=== PATIENT | male | born 1950 | race Caucasian/White ===

== ENCOUNTER 2016-08-10 13:09 | Emergency (ER) | payer MEDICARE, OTHER ==
[~2016-08-10] VITALS: Ht 180.3 cm; Wt 80.9 kg
[~2016-08-10 13:09] MED LIST: CARB100 PO; LISI-660 PO
[2016-08-10] MEDS ORDERED: LEVE500T53 PO (13:24)
[2016-08-10] MEDS ORDERED: LIDOCAINE HCL/PF 1% 2 ML VIAL IM ONE (14:00)
[2016-08-10] MEDS ORDERED: CefTRIAXone SODIUM 1 GM/VIAL IM ONE (14:00)
[2016-08-10 15:40] VITALS: BP 139/77
== END 2016-08-10 15:40 | disposition home or self-care (01) ==
LOC: EMS 13:10
DX: S30.860A Insect bite (nonvenomous) of lower back and pelvis, initial encounter (principal); L03.312 Cellulitis of back [any part except buttock and flank]; F17.210 Nicotine dependence, cigarettes, uncomplicated; I10 Essential (primary) hypertension; L08.9 Local infection of the skin and subcutaneous tissue, unspecified; W57.XXXA Bitten or stung by nonvenomous insect and other nonvenomous arthropods, initial encounter; Y99.9 Unspecified external cause status; Y92.9 Unspecified place or not applicable; Y93.89 Activity, other specified; L29.9 Pruritus, unspecified
CPT/HCPCS: 96372; 99284; J0696; J3490

== ENCOUNTER 2018-04-07 01:47 | Emergency (ER) | payer MEDICARE, OTHER ==
[~2018-04-07] VITALS: Ht 180.3 cm; Wt 79.5 kg
[~2018-04-07 01:47] MED LIST changes: -CARB100 PO; +LEVE500T53 PO; -LISI-660 PO
[2018-04-07] MEDS ORDERED: IPRA4AER IH (01:55)
[2018-04-07] MEDS ORDERED: IPRATROPIUM BROMIDE 0.5 MG/2.5 ML NEB SOLUTION NEB ONE ×2 (02:00→02:30)
[2018-04-07] MEDS ORDERED: ALBUTEROL SULFATE 2.5 MG/0.5 ML NEB SOLUTION NEB ONE (02:00)
[2018-04-07] MEDS ORDERED: ALBUTEROL SULFATE 5 MG/ML 20 ML NEB SOLN [BULK] NEB ONE (02:30)
[2018-04-07 02:48] LABS: BASOPHILS % (AUTO) 0.8 % (0.0-2.0); EOSINOPHILS % (AUTO) 7.4 % (1.0-6.0); HEMATOCRIT 45.7 % (41-53); HEMOGLOBIN 15.5 g/dL (13.5-17.5); LYMPHOCYTES # (AUTO) 2.4 K/uL (1.0-4.8); LYMPHOCYTES % (AUTO) 30.7 % (22.0-44.0); MEAN CORPUSCULAR HGB CONC 33.8 G/dL (31.0-37.0); MEAN CORPUSCULAR VOLUME 92 fL (80-100); MONOCYTES # (AUTO) 0.7 K/uL (0.1-1.0); MONOCYTES % (AUTO) 8.9 % (2.0-9.0); NEUTROPHILS % (AUTO) 52.2 % (40.0-70.0); PLATELET COUNT (AUTO) 248 K/uL (150-450); RED BLOOD CELL COUNT(AUTO) 4.99 MIL/uL (4.50-5.90); RED CELL DISTRIBUTION WIDTH 13.3 % (11.5-14.5)
[2018-04-07] MEDS ORDERED: 0.9% SODIUM CHLORIDE 5 ML NEB SOLUTION NEB ONE (02:53)
[2018-04-07 03:00] LABS: ANION GAP 9 mmol/L (8-16); CALCIUM, TOTAL 8.5 mg/dL (8.8-10.5); CARBON DIOXIDE 27 mmol/L (22-29); CHLORIDE 105 mmol/L (98-107); CREATININE 1.04 mg/dL (0.60-1.30); GLOMERULAR FILTR. RATE CALC > 60 mL/min (>60); GLUCOSE,RANDOM 102 mg/dL (70-110); POTASSIUM 3.8 mmol/L (3.5-5.1); SODIUM SERUM 141 mmol/L (136-145); UREA NITROGEN, BLOOD 15 mg/dL (7-18)
[2018-04-07 03:05] LABS: ALANINE AMINOTRANSFERASE 29 U/L (12-78); ALBUMIN 3.5 g/dL (3.4-5.0); ALKALINE PHOSPHATASE 47 U/L (46-116); ASPARTATE AMINOTRANSFERASE 19 U/L (15-37); BILIRUBIN,TOTAL 0.8 mg/dL (0.1-1.0); TOTAL PROTEIN, SERUM 6.4 g/dL (6.4-8.2)
[2018-04-07] MEDS ORDERED: MAGNESIUM SULFATE 2 GM/WATER 50 ML IV ONE (03:15)
[2018-04-07] MEDS ORDERED: MethylPREDNISolone SOD SUCC 125 MG/2 ML VIAL IVP ONE (03:15)
[2018-04-07 03:30] LABS: B-TYPE NATRIURETIC PEPTIDE 61 pg/mL (0-100)
[2018-04-07] MEDS ORDERED: AZITHROMYCIN 250 MG TABLET PO ONE (03:30)
[2018-04-07] MEDS ORDERED: CefTRIAXone 1 GM/DEXTROSE 50 ML IV ONE (03:30)
[2018-04-07 04:30] VITALS: BP 132/77
== END 2018-04-07 04:56 | disposition home or self-care (01) ==
LOC: EMS 01:47
DX: J44.1 Chronic obstructive pulmonary disease with (acute) exacerbation (principal); J18.9 Pneumonia, unspecified organism; I10 Essential (primary) hypertension; F17.210 Nicotine dependence, cigarettes, uncomplicated; Z88.2 Allergy status to sulfonamides; Z79.899 Other long term (current) drug therapy
CPT/HCPCS: 36415; 71045; 80053; 83880; 84484; 85025; 85730; 93005; 94640; 96365; 96366; 96368; 96375; 99284; 99406; J0696; J2930; J3475; 94644

== ENCOUNTER 2018-10-16 16:53 | Emergency (ER) | payer MEDICARE ==
[~2018-10-16] VITALS: Ht 177.8 cm; Wt 77.3 kg
[~2018-10-16 16:53] MED LIST changes: +IPRA4AER IH
[2018-10-16 16:56] VITALS: BP 141/93
== END 2018-10-16 17:18 | disposition left against medical advice (07) ==
LOC: EMS 16:56
DX: Z53.21 Procedure and treatment not carried out due to patient leaving prior to being seen by health care provider (principal)

== ENCOUNTER 2023-06-17 11:36 | Inpatient (IN) | payer MEDICARE, OTHER ==
[~2023-06-17] VITALS: Ht 180.3 cm; Wt 94.0 kg
[~2023-06-17 11:36] MED LIST changes: +LEVE500T20 PO; -LEVE500T53 PO
[2023-06-17 11:54] VITALS: PULSE 117; PULSE 97; RESP 19; RESP 20; O2SAT 95; O2SAT 98
[2023-06-17] MEDS: IPRATROPIUM BROMIDE 0.5 MG/2.5 ML NEB SOLUTION NEB ONE (11:54)
[2023-06-17] MEDS: ALBUTEROL SULFATE 2.5 MG/0.5 ML 5 ML NEB SOLUTION NEB ONE (11:54)
[2023-06-17] MEDS ORDERED: IPRATROPIUM BROMIDE 0.5 MG/2.5 ML NEB SOLUTION NEB ONE (12:00)
[2023-06-17] MEDS ORDERED: ALBUTEROL SULFATE 2.5 MG/0.5 ML NEB SOLUTION NEB ONE (12:00)
[2023-06-17 12:16] LABS: BASOPHILS % (AUTO) 0.3 % (0.0-2.0); EOSINOPHILS % (AUTO) 0.2 % (1.0-6.0); HEMATOCRIT 44.6 % (41-53); HEMOGLOBIN 14.7 g/dL (13.5-17.5); LYMPHOCYTES # (AUTO) 1.6 K/uL (1.0-4.8); MEAN CORPUSCULAR HGB CONC 32.9 G/dL (31.0-37.0); MEAN CORPUSCULAR VOLUME 88 fL (80-100); MONOCYTES # (AUTO) 2.1 K/uL (0.1-1.0); MONOCYTES % (AUTO) 9.1 % (2.0-9.0); NEUTROPHILS # (AUTO) 19.4 K/uL (1.8-7.7); NEUTROPHILS % (AUTO) 83.4 % (40.0-70.0); PLATELET COUNT (AUTO) 234 K/uL (150-450); RED BLOOD CELL COUNT(AUTO) 5.07 MIL/uL (4.50-5.90); RED CELL DISTRIBUTION WIDTH 14.3 % (11.5-14.5); WHITE BLOOD COUNT (AUTO) 23.3 K/uL (4.5-11.0)
[2023-06-17] MEDS: MethylPREDNISolone SOD SUCC 125 MG/2 ML VIAL IVP ONE (12:26)
[2023-06-17 12:32] LABS: CALCIUM, TOTAL 9.2 mg/dL (8.8-10.5); CREATININE 1.41 mg/dL (0.60-1.30); INR 1.3 (0.9-1.1); POTASSIUM 4.3 mmol/L (3.5-5.1)
[2023-06-17 12:35] LABS: TROPONIN I-HIGH SENSITIVITY 7 ng/L (<76)
[2023-06-17 12:38] LABS: ALBUMIN 3.3 g/dL (3.4-5.0); BILIRUBIN,TOTAL 2.5 mg/dL (0.1-1.0); TOTAL PROTEIN, SERUM 7.9 g/dL (6.4-8.2)
[2023-06-17 12:58] VITALS: PULSE 117; RESP 18; O2SAT 98
[2023-06-17] MEDS: CefTRIAXone 1 GM/DEXTROSE 50 ML IV ONE (13:25)
[2023-06-17] MEDS ORDERED: MAGNESIUM HYDROXIDE SUSPENSION 30 ML UDCUP PO PRN (14:30)
[2023-06-17] MEDS ORDERED: ONDANSETRON HCL 4 MG/2 ML VIAL IVP PRN (14:30)
[2023-06-17] MEDS: AZITHROMYCIN 500 MG/NS 250 ML IV ONE (18:37)
[2023-06-17] MEDS: HEPARIN SODIUM,PORCINE 5,000 UNITS/ML VIAL SQ SCH (18:37)
[2023-06-17] MEDS: MethylPREDNISolone SOD SUCC 125 MG/2 ML VIAL IVP SCH (19:31)
[2023-06-17] MEDS: DILTIAZEM HCL 5 MG/ML 5 ML VIAL IVP ONE ×2 (19:50→20:09)
[2023-06-17] MEDS: ONDANSETRON HCL 4 MG/2 ML VIAL IVP ONE (20:09)
[2023-06-17] MEDS: SODIUM CHLORIDE 0.9% 500 ML IV ONE (20:09)
[2023-06-17] MEDS: CALCIUM GLUCONATE 100 MG/ML 10 ML IVP ONE (20:09)
[2023-06-17] MEDS: DOCUSATE SODIUM 100 MG CAPSULE PO SCH (20:10)
[2023-06-17 21:45] VITALS: BP 110/75; PULSE 98; RESP 19; TEMP 98.1
[2023-06-18] VITALS (7 sets, daily range): BP systolic 112–117; BP diastolic 69–82; PULSE 100–116; RESP 18; TEMP 97.4–98.2
[2023-06-18 07:46] LABS: BASOPHILS % (AUTO) 0.1 % (0.0-2.0); EOSINOPHILS % (AUTO) 0 % (1.0-6.0); HEMATOCRIT 37.5 % (41-53); HEMOGLOBIN 12.6 g/dL (13.5-17.5); LYMPHOCYTES # (AUTO) 0.5 K/uL (1.0-4.8); LYMPHOCYTES % (AUTO) 2.9 % (22.0-44.0); MEAN CORPUSCULAR HEMOGLOBIN 29.3 pg (26.0-34.0); MEAN CORPUSCULAR HGB CONC 33.5 G/dL (31.0-37.0); MEAN CORPUSCULAR VOLUME 87 fL (80-100); MONOCYTES # (AUTO) 0.7 K/uL (0.1-1.0); MONOCYTES % (AUTO) 4.4 % (2.0-9.0); NEUTROPHILS # (AUTO) 15.9 K/uL (1.8-7.7); PLATELET COUNT (AUTO) 219 K/uL (150-450); RED CELL DISTRIBUTION WIDTH 13.8 % (11.5-14.5); WHITE BLOOD COUNT (AUTO) 17.1 K/uL (4.5-11.0)
[2023-06-18 07:50] LABS: NEUTROPHILS % (AUTO) 92.6 % (40.0-70.0)
[2023-06-18 08:13] LABS: ANION GAP 10 mmol/L (8-16); CALCIUM, TOTAL 9.1 mg/dL (8.8-10.5); CARBON DIOXIDE 26 mmol/L (22-29); CHLORIDE 99 mmol/L (98-107); CREATININE 1.16 mg/dL (0.60-1.30); GLOMERULAR FILTR. RATE CALC > 60 mL/min (>60); GLUCOSE,RANDOM 180 mg/dL (70-110); POTASSIUM 3.8 mmol/L (3.5-5.1); SODIUM SERUM 135 mmol/L (136-145); UREA NITROGEN, BLOOD 25 mg/dL (7-18)
[2023-06-18] MEDS: LevETIRAcetam 500 MG TABLET PO SCH (08:24)
[2023-06-18] MEDS: FAMOTIDINE 20 MG TABLET PO SCH (08:24)
[2023-06-18] MEDS ORDERED: SODIUM CHLORIDE 0.9% 250 ML IV ONE (12:45)
[2023-06-18] MEDS: CefTRIAXone 1 GM/DEXTROSE 50 ML IV SCH (13:24)
[2023-06-18] MEDS: AZITHROMYCIN 500 MG/NS 250 ML IV ONE (14:30)
[2023-06-18] MEDS: DEXTRAN 70 0.1%/HYPROMELL 0.3% 0.9 ML OPHTHALMIC SOLUTION [PF] OU SCH (14:57)
[2023-06-18] MEDS: DILTIAZEM HCL CD 120 MG ER CAPSULE PO SCH (22:20)
[2023-06-18] MEDS: DILTIAZEM HCL 5 MG/ML 5 ML VIAL IVP ONE (22:20)
[2023-06-18] MEDS: BENZONATATE 100 MG CAPSULE PO SCH (23:42)
[2023-06-19] VITALS (9 sets, daily range): BP systolic 118–141; BP diastolic 78–96; PULSE 61–110; RESP 18–20; TEMP 97.2–97.7; O2SAT 94–99
[2023-06-19] MEDS: BUDESONIDE 0.5 MG/2 ML NEB SOLUTION NEB SCH (09:00)
[2023-06-19] MEDS ORDERED: 0.9% SODIUM CHLORIDE 5 ML NEB SOLUTION NEB ONE (15:04)
[2023-06-19 15:23] LABS: SOURCE, BLOOD GAS ARTERIAL; TEMPERATURE, FAHRENHEIT, BG 97.7 FAHREN (96.0-98.6)
[2023-06-19 15:26] LABS: ABG BASE EXCESS -1.8 mmol/L (-2.0-3.0); ABG CARBOXYHEMOGLOBIN 1.7 % (0.0-1.5); ABG HCO3 23.5 mmol/L (22.0-26.0); ABG METHEMOGLOBIN 0.6 % (0.0-1.5); ABG OXYGEN CONTENT 18.2 mL/dL (15.0-23.0); ABG OXYGEN SATURATION 99.8 % (95.0-98.0); ABG OXYHEMOGLOBIN 97.5 % (94.0-100.0); ABG PCO2 34 mmHg (35-45); ABG PH 7.435 (7.35-7.450); ABG TOTAL HEMOGLOBIN 13.1 G/dL (12.0-18.0); PO2, ARTERIAL BG 145.9 mmHg (75.0-83.0)
[2023-06-19 15:39] LABS: ABG A-A DIFF O2 42.7 mmHg (10-20.0); ALLEN TEST, BLOOD GAS Positive; O2 DEVICE,BLOOD GAS CANNULA (ROOM AIR); SITE, BLOOD GAS LFT RADIAL
[2023-06-19] MEDS: ALBUTEROL SULFATE 2.5 MG/0.5 ML NEB SOLUTION NEB PRN (15:47)
[2023-06-20] VITALS (12 sets, daily range): BP systolic 115–144; BP diastolic 73–94; PULSE 71–102; RESP 16–21; TEMP 97.2–98.1; O2SAT 95–99
[2023-06-21] VITALS (8 sets, daily range): BP systolic 121–148; BP diastolic 79–95; PULSE 73–92; RESP 17–20; TEMP 97.2–97.7; O2SAT 94–97
[2023-06-21] MEDS ORDERED: APIX5TAB PO (09:05)
[2023-06-21] MEDS: DIGOXIN 250 MCG/ML 2 ML AMP IVP ONE ×2 (09:40→12:56)
[2023-06-21 09:47] LABS: EOSINOPHILS % (AUTO) 0 % (1.0-6.0); LYMPHOCYTES # (AUTO) 0.6 K/uL (1.0-4.8); LYMPHOCYTES % (AUTO) 4.2 % (22.0-44.0); MEAN CORPUSCULAR HGB CONC 33.2 G/dL (31.0-37.0); MEAN CORPUSCULAR VOLUME 87 fL (80-100); MONOCYTES # (AUTO) 0.6 K/uL (0.1-1.0); MONOCYTES % (AUTO) 3.7 % (2.0-9.0); PLATELET COUNT (AUTO) 284 K/uL (150-450); RED BLOOD CELL COUNT(AUTO) 4.47 MIL/uL (4.50-5.90); RED CELL DISTRIBUTION WIDTH 14.2 % (11.5-14.5); WHITE BLOOD COUNT (AUTO) 15.2 K/uL (4.5-11.0)
[2023-06-21 09:48] LABS: NEUTROPHILS % (AUTO) 92.1 % (40.0-70.0)
[2023-06-21 09:53] LABS: ANION GAP 6 mmol/L (8-16); CALCIUM, TOTAL 8.5 mg/dL (8.8-10.5); CARBON DIOXIDE 32 mmol/L (22-29); CHLORIDE 96 mmol/L (98-107); CREATININE 1.12 mg/dL (0.60-1.30); GLOMERULAR FILTR. RATE CALC > 60 mL/min (>60); GLUCOSE,RANDOM 220 mg/dL (70-110); POTASSIUM 4.6 mmol/L (3.5-5.1); SODIUM SERUM 134 mmol/L (136-145); UREA NITROGEN, BLOOD 29 mg/dL (7-18)
[2023-06-21 09:59] LABS: ALANINE AMINOTRANSFERASE 16 U/L (12-78); ALBUMIN 2.5 g/dL (3.4-5.0); ALKALINE PHOSPHATASE 78 U/L (46-116); ASPARTATE AMINOTRANSFERASE 10 U/L (15-37); BILIRUBIN,TOTAL 0.3 mg/dL (0.1-1.0); TOTAL PROTEIN, SERUM 6.3 g/dL (6.4-8.2)
[2023-06-21] MEDS: ACETAMINOPHEN 325 MG TABLET PO PRN (11:48)
[2023-06-21] MEDS: MethylPREDNISolone SOD SUCC 40 MG/ML VIAL IVP SCH (17:10)
[2023-06-21] MEDS: APIXABAN 5 MG TABLET PO SCH (21:19)
[2023-06-22] VITALS (9 sets, daily range): BP systolic 117–142; BP diastolic 69–98; PULSE 79–100; RESP 16–20; TEMP 97.3–98; O2SAT 95
[2023-06-22] MEDS: PredniSONE 20 MG TABLET PO SCH (08:04)
[2023-06-22] MEDS: AMIODARONE HCL 360 MG in DEXTROSE 5%-WATER 242.8 ML IV ONE (09:33)
[2023-06-22] MEDS: AMIODARONE HCL 150 MG in DEXTROSE 5%-WATER 97 ML IV ONE (09:33)
[2023-06-22] MEDS: AMIODARONE HCL 540 MG in DEXTROSE 5%-WATER 239.2 ML IV ONE (15:42)
[2023-06-23] VITALS (10 sets, daily range): BP systolic 124–138; BP diastolic 76–90; PULSE 51–92; RESP 16–23; TEMP 97.3–97.5; O2SAT 95–98
[2023-06-23] MEDS: DIGOXIN 250 MCG/ML 2 ML AMP IVP ONE (10:05)
[2023-06-23] MEDS: AMIODARONE HCL 750 MG in DEXTROSE 5%-WATER 485 ML IV SCH (10:07)
[2023-06-23] MEDS ORDERED: LORazepam 2 MG/ML VIAL IVP PRN (21:30)
[2023-06-23 22:05] LABS: GLUCOMETER DEV NAME(LOC) 5S.1B; GLUCOSE,POINT OF CARE 142 MG/DL (70-110)
[2023-06-24] VITALS (10 sets, daily range): BP systolic 123–139; BP diastolic 74–87; PULSE 54–68; RESP 16–20; TEMP 97.5–98; O2SAT 96–99
[2023-06-24] MEDS: LevETIRAcetam 250 MG TABLET PO SCH ×2 (08:43→21:24)
[2023-06-24] MEDS: AMIODARONE HCL 200 MG TABLET PO SCH (21:23)
[2023-06-25] VITALS (7 sets, daily range): BP systolic 122–139; BP diastolic 71–87; PULSE 60–68; RESP 18–19; TEMP 97.7–98; O2SAT 95–100
[2023-06-25] MEDS: HYDROCODONE/ACETAMINOPHEN 5-325 MG TABLET PO PRN (08:38)
[2023-06-25] MEDS ORDERED: AMIO200 PO (11:02)
[2023-06-25] MEDS ORDERED: IPRA4AER IH (11:02)
[2023-06-25] MEDS ORDERED: ALBU18HF12 IH (11:03)
[2023-06-25] MEDS ORDERED: LEVE250T PO (11:03)
[2023-06-25] MEDS ORDERED: PRED-554 PO (11:03)
[2023-06-25] MEDS ORDERED: APIX5TAB PO (11:03)
[2023-06-25] MEDS ORDERED: DILT120C89 PO (11:03)
== END 2023-06-25 18:50 | disposition home or self-care (01) | DRG 177 ==
LOC: EMS 11:36 → 5S 19:17
PROVIDERS: ADMIT Internal Medicine; ATTEND Internal Medicine
DX: J15.69 Pneumonia due to other Gram-negative bacteria (principal); J96.21 Acute and chronic respiratory failure with hypoxia; R65.10 Systemic inflammatory response syndrome (SIRS) of non-infectious origin without acute organ dysfunction; I48.0 Paroxysmal atrial fibrillation; J43.2 Centrilobular emphysema; G40.909 Epilepsy, unspecified, not intractable, without status epilepticus; J20.9 Acute bronchitis, unspecified; I10 Essential (primary) hypertension; E66.01 Morbid (severe) obesity due to excess calories; R91.8 Other nonspecific abnormal finding of lung field; Z79.01 Long term (current) use of anticoagulants; Z87.891 Personal history of nicotine dependence; Z88.2 Allergy status to sulfonamides; Z68.28 Body mass index [BMI] 28.0-28.9, adult
CPT/HCPCS: 36600; 71045; 71250; 80048; 80053; 82805; 82962; 83880; 84484; 85025; 85610; 85730; 93005; 93306; 94640; 94644; 99285; J0282; J0456; J0610; J0696; J1160; J1644; J2405; J2920; J2930; J3490; J7040; J7050; J7060; Q9967; 36415-L1; 36415-TC; J7613

== ENCOUNTER 2023-08-07 10:06 | Emergency (ER) | payer MEDICARE, OTHER ==
[~2023-08-07] VITALS: Ht 180.3 cm; Wt 88.6 kg
[~2023-08-07 10:06] MED LIST changes: +ALBU18HF12 IH; +AMIO200 PO; +APIX5TAB PO; +DILT120C89 PO; +LEVE250T PO; -LEVE500T20 PO; +PANT-31 PO; +PRED-554 PO
[2023-08-07 10:26] VITALS: TEMP 97.8
[2023-08-07] MEDS ORDERED: LIDOCAINE/PF 2% 5 ML VIAL IM ONE (12:00)
[2023-08-07] MEDS ORDERED: DEXAMETHASONE SOD PHOS 4 MG/ML VIAL IVP ONE (12:00)
[2023-08-07] MEDS ORDERED: ROCURONIUM BROMIDE 10 MG/ML 5 ML VIAL IVP ONE (12:00)
[2023-08-07] MEDS ORDERED: FentaNYL CITRATE PF 100 MCG/2 ML VIAL IVP ONE (12:00)
[2023-08-07] MEDS ORDERED: ONDANSETRON HCL 4 MG/2 ML VIAL IVP ONE (12:00)
[2023-08-07] MEDS ORDERED: PROPOFOL 1% 20 ML VIAL IVP ONE (12:00)
[2023-08-07] MEDS ORDERED: SUGAMMADEX SODIUM 200 MG/2 ML VIAL IVP ONE (12:00)
[2023-08-07] MEDS: GLUCAGON,HUMAN RECOMBINANT 1 MG VIAL IVP ONE (13:14)
[2023-08-07] MEDS ORDERED: SODIUM CHLORIDE 0.45% 0 ML IV ONE (14:00)
[2023-08-07] MEDS ORDERED: SODIUM CHLORIDE 0.9% 1,000 ML ONE ×2 (14:00→14:35)
[2023-08-07] MEDS ORDERED: PANTOPRAZOLE SODIUM 40 MG DR TABLET PO SCH (15:00)
[2023-08-07] MEDS: PANTOPRAZOLE SODIUM 40 MG/VIAL IVP ONE (15:29)
[2023-08-07 16:00] VITALS: BP 151/51; PULSE 56; RESP 16
[2023-08-07] MEDS ORDERED: PANT-31 PO (16:09)
== END 2023-08-07 18:50 | disposition home or self-care (01) ==
LOC: EMS 10:06
DX: K22.2 Esophageal obstruction (principal); J44.9 Chronic obstructive pulmonary disease, unspecified; I10 Essential (primary) hypertension; R56.9 Unspecified convulsions; J18.9 Pneumonia, unspecified organism; I48.91 Unspecified atrial fibrillation; F17.210 Nicotine dependence, cigarettes, uncomplicated; Z88.2 Allergy status to sulfonamides
CPT/HCPCS: 43247; 99291; 43239; 70490; 96374; 96375; 88305; 71250; J1610; C1769; J2704; J1100; J3010; J3490 ×2; J2405; C9113; Q9967; J7030